=== PATIENT | male | born 1970 | race Caucasian/White ===

== ENCOUNTER 2021-04-17 00:19 | Emergency (ER) | payer MEDICAID ==
[~2021-04-17] VITALS: Ht 185.4 cm; Wt 81.6 kg
--- NOTE | 2021-04-17 00:19 | NUR ---
MADALYN DUNN. TAKEN TO CHAIR Ender
[2021-04-17 00:20] VITALS: BP 129/77
[2021-04-17] MEDS ORDERED: IBUPROFEN 600 MG TAB PO ONE (00:50)
[2021-04-17 02:05] VITALS: BP 129/77
--- NOTE | 2021-04-17 02:05 | NUR ---
Patient discharged with v/s stable. Written and verbal after care instructions given and explained. Patient verbalized understanding. Police with in custody. All questions addressed prior to discharge. Advised to follow up with PMD.
== END 2021-04-17 02:05 ==
LOC: MED 00:19
DX: G89.29 Other chronic pain (principal); M25.572 Pain in left ankle and joints of left foot; Z98.890 Other specified postprocedural states
CPT/HCPCS: 73610; 99283

== ENCOUNTER 2021-05-20 11:40 | Emergency (ER) | payer MEDICAID ==
[~2021-05-20] VITALS: Ht 182.9 cm; Wt 83.5 kg
[2021-05-20] MEDS ORDERED: CEPH-588 PO (11:46)
[2021-05-20 11:47] VITALS: BP 138/92
--- NOTE | 2021-05-20 12:06 | NUR ---
PATIENT [facility] [employer]. PATIENT EXAMINED BY DR. KAPOOR. PATIENT MEDICALLY CLEARED AND RELEASED IN CUSTODY IN STABLE CONDITION. ORIGINAL PRE-BOOK FORM GIVEN TO OFFICER ISABEL.
--- NOTE | 2021-05-20 12:06 | NUR ---
PT GIVEN RX OF KEFLEX AND DISCHARGE INSTRUCTIONS ABOUT WOUND CARE.
== END 2021-05-20 12:06 ==
LOC: MED 11:40
DX: L03.116 Cellulitis of left lower limb (principal); Z98.890 Other specified postprocedural states; Z79.2 Long term (current) use of antibiotics
CPT/HCPCS: 99283